=== PATIENT | female | born 1980 | race Caucasian/White ===

== ENCOUNTER 2019-08-26 00:35 | Inpatient (IN) | payer OTHER ==
[~2019-08-26] VITALS: Ht 160 cm; Wt 67.6 kg
[2019-08-26 00:45] VITALS: BP 138/97
--- NOTE | 2019-08-26 00:50 | NUR ---
PT AMBULATED TO LOBBY WITH VSS. UNABLE TO OBTAIN URINE SPECIMEN AT THIS TIME, PT USED RESTROOM PRINTING GREY CLOTH TENDER
--- NOTE | 2019-08-26 01:21 | NUR ---
PT AMBULATED TO RESTROOM
--- NOTE | 2019-08-26 01:21 | NUR ---
PT AMBULATED TO ER BED 1
--- NOTE | 2019-08-26 01:25 | NUR ---
PT C/O RT FLANK PAIN AND ABD X1 DAY. + URINARY SYMPTOMS. C/O PAINFUL URINATION, HESITENCY, RETENTION AND URGENCY. DENIES FEVER. PT C/O ABD PAIN DENIES N/V/D. ABD SOFT ROUND NON TENDER. 08/18 SHARP PAIN. DENIES TRAUMA TO FLANK AREA. LMP 08/09/19. PT RESTING IN BED WITH FAMILY MEMBER AT BEDSIDE. VSS AT THIS TIME. MEDHX: DM ALLERGIES: DENIES
--- NOTE | 2019-08-26 01:51 | NUR ---
PT C/O INCREASING FLANK PAIN, 08/18. DR GARCIA MADE AWARE. VSS. WILL CONTINUE TO MONITOR.
[2019-08-26] MEDS ORDERED: KETOROLAC 30 MG/ML VIAL IVP ONE (02:00)
[2019-08-26 02:19] LABS: APPEARANCE,URINE CLOUDY (CLEAR); BILIRUBIN,URINE NEGATIVE (NEGATIVE); BLOOD, URINE 2+ (NEGATIVE); COLOR,URINE YELLOW (YELLOW); LEUKOCYTE ESTERASE ,URINE 2+ (NEGATIVE); NITRITE, URINE POSITIVE (NEGATIVE); UGLUCOSE NEGATIVE (NEGATIVE)
[2019-08-26 02:19] LABS: BASOPHILS # (AUTO) 0.1 K/uL (0.00-0.22); BASOPHILS % (AUTO) 0.7 % (0.0-2.0); EOSINOPHILS # (AUTO) 0.1 K/uL (0-0.4); EOSINOPHILS % (AUTO) 0.6 % (0.0-4.0); HEMATOCRIT 36.4 % (36-48); HEMOGLOBIN 11.2 g/dL (12.0-16.0); LYMPHOCYTES # (AUTO) 1.3 K/uL (2.5-16.5); LYMPHOCYTES % (AUTO) 11.5 % (20.5-51.1); MEAN CORPUSCULAR HEMOGLOBIN 24 pg (27-31); MEAN CORPUSCULAR HGB CONC 31 g/dL (33-37); MEAN CORPUSCULAR VOLUME 77.4 fL (80-94); MONOCYTES # (AUTO) 0.6 K/uL (0.8-1.0); MONOCYTES % (AUTO) 5.7 % (1.7-9.3); NEUTROPHILS # (AUTO) 9.2 K/uL (1.8-7.7); NEUTROPHILS % (AUTO) 81.5 % (42.2-75.2); PLATELET COUNT (AUTO) 306 K/uL (140-450); RED CELL DISTRIBUTION WIDTH 19.8 % (11.6-13.7); WHITE BLOOD COUNT (AUTO) 11.3 K/uL (4.8-10.8)
[2019-08-26] MEDS ORDERED: ONDANSETRON 4 MG/2 ML VIAL IVP ONE (02:20)
--- NOTE | 2019-08-26 02:20 | NUR ---
PT C/O NAUSEA R/T PAIN. DR GARCIA MADE AWARE. VSS. WILL CONTINUE TO MONITOR
[2019-08-26 02:29] LABS: ANION GAP 17.6 (8-16); CARBON DIOXIDE 23.9 mmol/L (21-32); CREATININE 0.7 mg/dL (0.6-1.3); POTASSIUM 3.5 mmol/L (3.5-5.1)
[2019-08-26 02:30] LABS: RBC,URINE 11-20 (MOD) /HPF (0-5); WBC,URINE TOO MANY TO COUNT /HPF (0-5)
[2019-08-26] MEDS ORDERED: MORPHINE SULFATE 4 MG/ML SYR IVP ONE (02:45)
[2019-08-26] MEDS ORDERED: cefTRIAXone 1,000 MG VIAL ONE (02:59)
[2019-08-26] MEDS ORDERED: ONDANSETRON 4 MG/2 ML VIAL IVP PRN (03:10)
[2019-08-26] MEDS ORDERED: ALBUTEROL 0.083% 2.5 MG/3 ML NEBU INH PRN (03:10)
[2019-08-26] MEDS ORDERED: ACETAMINOPHEN 325 MG TAB PO PRN (03:10)
--- NOTE | 2019-08-26 03:13 | NUR ---
PT STATES DECREASE IN PAIN. PT LAYING IN BED WITH EYES CLOSED. VSS. NO COMPLAINTS AT THIS TIME.
--- NOTE | 2019-08-26 03:45 | NUR ---
PATIENT ADMITTED TO THE UNIT FROM ED. PATIENT IS AWAKE, ALERT AND ORIENTED. PT IS AMBULATORY. PT ON ROOM AIR. NO SOB OR S/S OF DISTRESS AT THIS TIME. PT REPORTS 5/10 RIGHT FLANK PAIN. DENIES NAUSEA AT THIS TIME. BED LOWERED WITH CALL LIGHT WITHIN REACH. WILL CONTINUE TO MONITOR
--- NOTE | 2019-08-26 03:47 | NUR ---
Patient will be admitted to care of DR JOSUE. Admited to MED SURG. Will go to [id number]. Belongings list completed. Report to ROLF TRINH .
[2019-08-26] MEDS: HYDROcodone/APAP 5/325 MG 1 TAB TAB PO PRN (03:57)
[2019-08-26 04:13] VITALS: BP 160/89
[2019-08-26] MEDS: NACL 0.9% 1,000 ML IV SCH ×3 (05:00→16:34)
[2019-08-26] MEDS: MORPHINE SULFATE 4 MG/ML SYR IVP PRN ×4 (05:09→18:48)
--- NOTE | 2019-08-26 06:17 | NUR ---
PT ASLEEP IN BED. NO S/S OF DISTRESS NOTED AT THIS TIME
--- NOTE | 2019-08-26 07:16 | NUR ---
PATIENT REPORT GIVEN AT BEDSIDE. PATIENT ENDORSED IN STABLE CONDITION
--- NOTE | 2019-08-26 07:17 | NUR ---
RECEIVED REPORT FROM SEED POTATO ARRANGER NURSE AT BEDSIDE FOR CONTINUITY OF CARE. PATIENT IS IN BED, ALERT, ORIENTED X4, PATIENT AMBULATORY. RESPIRATION EVEN AND UNLABORED ON ROOM AIR. IV INTACT AND PATENT TO LEFT WRIST, INFUSING IVF WELL. PATIENT LAST MEDICATED FOR PAIN AT 0509. UPDATED BOARD. UPDATED PATIENT WITH PLAN OF CARE. PATIENT VERBALIZED UNDERSTANDING. CALL LIGHT WITHIN REACH, WILL CONTINUE TO MONITOR PATIENT. Addendum: 08/27/19 at 0724 by Derek Arellano RN IV TO LEFT AC.
[2019-08-26 08:00] VITALS: BP 123/70
--- NOTE | 2019-08-26 08:32 | NUR ---
PATIENT HAS BEEN SCREENED AND CATEGORIZED LOW NUTRITION RISK. PATIENT WILL BE SEEN WITHIN 7 DAYS OF ADMISSION. 09/01/[address]
--- NOTE | 2019-08-26 09:15 | NUR ---
PATIENT SLEEPING, RESPIRATIONS EVEN AND UNLABORED ON ROOM AIR. NO COMPLAINTS AT THIS TIME. CALL LIGHT WITHIN REACH, WILL CONTINUE TO MONITOR PATIENT.
--- NOTE | 2019-08-26 10:14 | NUR ---
Met with patient and made her appointment with Dr. Bernal her PCP [phone] on September 01 at 09:15 am.
--- NOTE | 2019-08-26 10:17 | NUR ---
PT C/O 8/10 R LOWER BACK PAIN. PRN PAIN MEDICATION GIVEN. PATIENT TOLERATING IT WELL. NO COMPLAINTS AT THIS TIME. CALL LIGHT WITHIN REACH, WILL CONTINUE TO MONITOR PATIENT.
--- NOTE | 2019-08-26 13:07 | NUR ---
DR ARRIETA IN TO SEE THE PATIENT. PATIENT DENIES PAIN AND THERE ARE NO COMPLAINTS AT THIS TIME. AT BEDSIDE. CALL LIGHT WITHIN REACH. WILL CONTINUE TO MONITOR PATIENT.
--- NOTE | 2019-08-26 13:55 | NUR ---
SPOKE TO TARA FROM [facility] AND GAVE RM#[id number], REPORT TO [phone]. NOTIFIED GAYATHRI CUELLAR.
[2019-08-26 16:00] VITALS: BP 109/72
--- NOTE | 2019-08-26 16:04 | NUR ---
DC PLANNING: GALINA SPOKE WITH CHARGE NURSE, WHO CONFIRM WITH DR. HOGUE THAT ACCEPTING MD AT [facility] IS DR. NELLA HARRIS. GALINA CONTACTED [facility] @ . SPOKE WITH GEOVANNA, WHO STATED HAS NOT AWARE OF PATIENT TRANSFERRING. PER GEOVANNA, MD COULD HAVE SPOKE WITH DR. HARRIS DIRECTLY. GEOVANNA WILL BE CONFIRMING WITH DR. HARRIS. GALINA FAXED CLINICAL PACKET AND ORDER TO F . Addendum: 08/26/19 at 1641 by Tiffany Muñoz CM SPOKE WITH GEOVANNA AT [facility] @ REGARDING TRANSFER REQUEST. CURRENTLY, WAITING FOR UROLOGIST TO ACCEPT PATIENT. DR. NELLA HARRIS IS A HOSPITALIST. WILL STILL NEED ACCEPTING UROLOGIST. GEOVANNA WILL FOLLOW UP WITH NURSE FOR FURTHER INFORMATION AFTER OFFICE HOURS.
--- NOTE | 2019-08-26 18:30 | NUR ---
GAYATHRI AUSTIN FROM [facility] CALLED. UPDATED HER WITH PATIENT'S INFORMATION. PER PATIENT, HER STENT WAS PLACED AT [facility] ONE MONTH AGO, SHE DOES NOT REMEMBER SPECIFIC DATE AND DOCTOR'S NAME. PER GAYATHRI AUSTIN, THE DOCTOR IS DECLINING THE CASE. CHARGE NURSE GRISEL AWARE. PATIENT AND AT BEDSIDE AWARE.
--- NOTE | 2019-08-26 18:47 | NUR ---
PATIENT MEDICATED FOR PAIN WITH PRN PAIN MEDICATION. PATIENT TOLERATED IT WELL. SHANNAN AT BEDSIDE. CALL LIGHT WITHIN REACH. WILL CONTINUE TO MONITOR PATIENT.
--- NOTE | 2019-08-26 19:38 | NUR ---
REPORT GIVEN TO DIRT CONTRACTOR NURSE AT BEDSIDE FOR CONTINUITY OF CARE. PATIENT STABLE, FAMILY AT BEDSIDE. ENDORSED PAIN REASSESSMENT TO DIRT CONTRACTOR NURSE.
--- NOTE | 2019-08-26 19:39 | NUR ---
RECEIVED PT IN STABLE CONDITION FROM AM NURSE. ON MED SURG. AWAKE,ALERT AND ORIENTED X4. WITH NO C/O ANY DISCOMFORT NOR PAIN NOTED. FAMILY AT BEDSIDE. IVF INFUSING WELL LAET AC G20. CLEAR AND PATENT. PLAN OF CARE DISCUSSED AND VERBALIZED UNDERSTANDING. BED ON LOW POSITION, FREQ ROUNDS NEEDED. CALL LIGHT PLACED WITHIN REACH. WILL CONTINUE TO MONITOR.
--- NOTE | 2019-08-26 21:03 | NUR ---
PAGED DR. ARRIETA BUT DR. BOWLING MASTER DEPUTY SHERIFF COURT SECURITY. CALLED [facility] AND MADE AWARE THAT PT STILL HER AND WAS NOT ACCEPTED IN [facility]. HE SAID OK.
[2019-08-26] MEDS ORDERED: TEMAZEPAM 15 MG CAP ONE (22:17)
--- NOTE | 2019-08-26 22:19 | NUR ---
C/O INSOMNIA. RESTORIL 15 MG PO GIVEN ORDERED. WILL CONTINUE TO MONITOR.
[2019-08-27 00:28] VITALS: BP 127/79
[2019-08-27] MEDS: HYDROcodone/APAP 5/325 MG 1 TAB TAB PO PRN (00:28)
--- NOTE | 2019-08-27 00:30 | NUR ---
MADE ROUNDS. PT VITAL SIGNS STABLE. WILL CONTINUE TO MONITOR.
--- NOTE | 2019-08-27 02:00 | NUR ---
MADE ROUNDS. PT ASLEEP WITH NO S/S OF ANY DISCOMFORT NOTED.
[2019-08-27] MEDS: NACL 0.9% 1,000 ML IV SCH ×2 (04:35→08:29)
--- NOTE | 2019-08-27 04:35 | NUR ---
PT AWAKE. NO C/O ANY DISCOMFORT NOTED.
--- NOTE | 2019-08-27 06:00 | NUR ---
PT IS STILL ASLEEP. NO S/S OF PAIN NOTED.
--- NOTE | 2019-08-27 07:21 | NUR ---
ENDORSED PT IN STABLE CONDITION TO AM NURSE.
--- NOTE | 2019-08-27 07:22 | NUR ---
RECEIVED REPORT FROM CIVIL ENGINEERING ASSISTANT NURSE AT BEDSIDE FOR CONTINUITY OF CARE. PATIENT IS IN BED, SLEEPING COMFORTABLY. PATIENT DENIES PAIN AT THIS TIME. RESPIRATION EVEN AND UNLABORED ON ROOM AIR. IV INTACT AND PATENT TO LEFT AC, INFUSING IVF WELL. UPDATED BOARD. UPDATED PATIENT WITH PLAN OF CARE. PATIENT VERBALIZED UNDERSTANDING. CALL LIGHT WITHIN REACH, WILL CONTINUE TO MONITOR PATIENT.
[2019-08-27 07:25] LABS: BASOPHILS % (AUTO) 0.4 % (0.0-2.0); EOSINOPHILS # (AUTO) 0.3 K/uL (0-0.4); EOSINOPHILS % (AUTO) 4.6 % (0.0-4.0); HEMATOCRIT 32.4 % (36-48); HEMOGLOBIN 9.9 g/dL (12.0-16.0); LYMPHOCYTES # (AUTO) 2.1 K/uL (2.5-16.5); LYMPHOCYTES % (AUTO) 35.4 % (20.5-51.1); MEAN CORPUSCULAR HEMOGLOBIN 24 pg (27-31); MEAN CORPUSCULAR HGB CONC 31 g/dL (33-37); MEAN CORPUSCULAR VOLUME 78.6 fL (80-94); MONOCYTES # (AUTO) 0.3 K/uL (0.8-1.0); MONOCYTES % (AUTO) 5.3 % (1.7-9.3); NEUTROPHILS # (AUTO) 3.2 K/uL (1.8-7.7); NEUTROPHILS % (AUTO) 54.3 % (42.2-75.2); PLATELET COUNT (AUTO) 247 K/uL (140-450); RED BLOOD CELL COUNT(AUTO) 4.12 MIL/uL (4.20-5.40); RED CELL DISTRIBUTION WIDTH 18.7 % (11.6-13.7); WHITE BLOOD COUNT (AUTO) 5.8 K/uL (4.8-10.8)
[2019-08-27 08:00] VITALS: BP 111/77
[2019-08-27 08:21] LABS: MAGNESIUM 1.7 mg/dL (1.8-2.4); PHOSPHORUS 3.7 mg/dL (2.5-4.9)
--- NOTE | 2019-08-27 08:49 | NUR ---
PATIENT RESTING IN BED COMFORTABLY, RESPIRATIONS EVEN AND UNLABORED, ON S/S OF SOB OR DISTRESS NOTED. CALL LIGHT WITHIN REACH. WILL CONTINUE TO MONITOR PATIENT.
[2019-08-27 10:21] LABS: ANION GAP 13.1 (8-16); CARBON DIOXIDE 23.8 mmol/L (21-32); CREATININE 0.6 mg/dL (0.6-1.3); POTASSIUM 3.9 mmol/L (3.5-5.1)
[2019-08-27] MEDS: MORPHINE SULFATE 4 MG/ML SYR IVP PRN (10:30)
--- NOTE | 2019-08-27 10:30 | NUR ---
PATIENT MEDICATED FOR PAIN WITH PRN PAIN MEDICATION. PATIENT TOLERATED IT WELL. SHANNAN AT BEDSIDE. NO COMPLAINTS AT THIS TIME. CALL LIGHT WITHIN REACH, WILL CONTINUE TO MONITOR PATIENT.
--- NOTE | 2019-08-27 13:00 | NUR ---
PATIENTS CLINICAL INFORMATION SENT TO [facility] FOR TRANSFER, PATIENT STATED STENT WAS PLACED IN [facility]. CANCELLED TRANSFER TO [place] AND SENT CLINICAL INFORMATION TO [facility] FOR TRANSFER. PATIENT MADE AWARE THAT PATIENT NEEDS TO GO TO THE HOSPITAL THAT THE STENT WAS PLACED D/T POSSIBLE OCCLUSION. SHE SAID SHE DIDNT WANT TO GO BACK TO [facility] BUT IF THATS WHERE SHE NEEDS TO GO SHE WILL GO
--- NOTE | 2019-08-27 14:40 | NUR ---
PATIENT WANTS TO GO AMA. PAGED DR. EVERETT. DR EVERETT CALLED BACK AND SPOKE TO PATIENT OVER THE PHONE. PATIENT AWARE OF RISKS OF GOING AMA, SHE VERBALIZED UNDERSTANDING. SHANNAN AT BEDSIDE. PATIENT DOES NOT WANT TO BE TRANSFERRED TO [facility]. SHE STATED SHE WILL GO TO ANOTHER HOSPITAL FOR CARE. MEDICARE INTERVIEWER VANIA, AND NURSING MOLDER FEEDER AMARILIS AWARE.
--- NOTE | 2019-08-27 14:45 | NUR ---
IV REMOVED, IV CATHETER INTACT, MINIMAL BLEEDING NOTED, ID BANDS CUT. PATIENT WILL NOW CHANGE INTO HER OWN CLOTHING TO GO AMA. SHANNAN AT SIDE.
--- NOTE | 2019-08-27 14:45 | NUR ---
SPOKE TO THE PATIENT ON THE RISKS OF GOING AMA. SHE SAID SHE WILL GO TO ANOTHER HOSPITAL. PATIENT REFUSES TO GO BACK TO [facility].
--- NOTE | 2019-08-27 14:50 | NUR ---
Faxed clinical review to [facility] at [phone]
--- NOTE | 2019-08-27 14:57 | NUR ---
PATIENT GOING AMA, AMBULATED OFF FLOOR WITH SHANNAN. PATIENT TOOK ALL HER BELONGINGS WITH HER.
--- NOTE | 2019-08-27 14:59 | NUR ---
faxed clinical review to [facility] at [phone] and awaiting for bed.
[2019-08-27] MEDS ORDERED: TEMAZEPAM 15 MG CAP PO PRN (21:00)
== END 2019-08-27 14:57 | disposition left against medical advice (07) | DRG 466 ==
LOC: MED 00:35 → MTU 03:12
PROVIDERS: ADMIT Internal Medicine Pulmonary Disease; ATTEND Internal Medicine Pulmonary Disease
DX: T83.193A Other mechanical complication of other urinary stent, initial encounter (principal); N13.6 Pyonephrosis; E86.9 Volume depletion, unspecified; I10 Essential (primary) hypertension; Z53.29 Procedure and treatment not carried out because of patient's decision for other reasons; Y83.8 Other surgical procedures as the cause of abnormal reaction of the patient, or of later complication, without mention of misadventure at the time of the procedure; Y92.89 Other specified places as the place of occurrence of the external cause; Z87.442 Personal history of urinary calculi
CPT/HCPCS: 36415; 74018; 80048; 81001; 81025; 83605; 83735; 84100; 85025; 87040; 87081; 87086; 96365; 96375; 99285; J0696; J1885; J2270; J2405; J7030; J7060